=== PATIENT | male | born 1985 | race Caucasian/White ===

== ENCOUNTER 2024-01-25 17:48 | Emergency (ER) | payer OTHER ==
[~2024-01-25] VITALS: Ht 180.3 cm; Wt 86.2 kg
[2024-01-25 18:27] VITALS: BP_SYST 148; PULSE 86; RESP 16; TEMP 98; O2SAT 97
[2024-01-25] MEDS: DIPHTH,PERTUSS(ACELL),TET VAC 0.5 ML VIAL (Tdap) I.M. ONE (20:06)
[2024-01-25] MEDS ORDERED: IBUP-1969 PO (22:01)
[2024-01-25] MEDS ORDERED: AUG875 PO (22:01)
[2024-01-25] MEDS ORDERED: TRAM50TA2 PO (22:01)
[2024-01-25] MEDS ORDERED: ACET-2634 PO (22:01)
[2024-01-25] MEDS ORDERED: BACITRACIN 1 GM OINT TP ONE (22:20)
[2024-01-25] MEDS: LIDOCAINE 1% 10 MG/ML, 20 ML MDV INJ ONE ×2 (22:28→22:29)
[2024-01-25] MEDS: cefTRIAXone 1 GM VIAL IM ONE (22:33)
[2024-01-25] MEDS ORDERED: cefTRIAXone 1 GM VIAL ONE (22:34)
[2024-01-25 22:50] VITALS: BP_SYST 129; PULSE 79; RESP 18; TEMP 97.5; O2SAT 96
== END 2024-01-25 23:01 | disposition home or self-care (01) ==
LOC: SED 17:48
DX: S62.631A Displaced fracture of distal phalanx of left index finger, initial encounter for closed fracture (principal); S61.215A Laceration without foreign body of left ring finger without damage to nail, initial encounter; Z23 Encounter for immunization; Z79.899 Other long term (current) drug therapy; Z79.2 Long term (current) use of antibiotics; W26.8XXA Contact with other sharp object(s), not elsewhere classified, initial encounter; Y93.89 Activity, other specified; Y92.89 Other specified places as the place of occurrence of the external cause; Y99.8 Other external cause status
CPT/HCPCS: 99284; 73140; 90715; 96372; 90471; 12002; 29130; J0696; J2001